=== PATIENT | female | born 1955 | race African-American/Black ===

== ENCOUNTER 2023-02-26 10:41 | Outpatient (CLI) | payer MEDICARE | END 2023-02-26 10:42 | disposition home or self-care (01) | LOC: CSHULT 10:41 | PROVIDERS: ATTEND Family Medicine | DX: R10.11 Right upper quadrant pain (principal) | CPT/HCPCS: 76705 ==

== ENCOUNTER 2024-02-19 09:52 | Outpatient (CLI) | payer MEDICARE | END 2024-02-19 09:53 | disposition home or self-care (01) | LOC: CSHULT 09:52 | PROVIDERS: ATTEND Internal Medicine | DX: R79.89 Other specified abnormal findings of blood chemistry (principal); N28.1 Cyst of kidney, acquired; K76.89 Other specified diseases of liver | CPT/HCPCS: 76700 ==